=== PATIENT | female | born 1975 ===

== ENCOUNTER 2019-05-27 10:52 | Emergency (ER) | payer SELFPAY ==
[~2019-05-27] VITALS: Ht 160 cm; Wt 55.0 kg
[2019-05-27 10:59] VITALS: BP 111/54
== END 2019-05-27 13:07 | disposition home or self-care (01) ==
LOC: ED 12:00
DX: F15.10 Other stimulant abuse, uncomplicated (principal)
CPT/HCPCS: 99281

== ENCOUNTER 2019-08-22 15:31 | Inpatient (IN) | payer MEDICAID ==
[~2019-08-22] VITALS: Ht 160 cm; Wt 55.3 kg
[2019-08-22] MEDS ORDERED: SODIUM CHLORIDE FLUSH 10ML SYR IVF ONE ×2 (16:00→18:30)
[2019-08-22] MEDS ORDERED: ACETAMINOPHEN 500 MG TABLET PO ONE (16:00)
[2019-08-22] MEDS ORDERED: SODIUM CHLORIDE 0.9% 1,000ML IVBOLUS ONE ×2 (16:00→18:30)
[2019-08-22 16:26] LABS: MEAN CORPUSCULAR HEMOGLOBIN 29.3 pg (27.0-34.8); MEAN CORPUSCULAR HGB CONC 33.1 g/dL (32.4-35.8); MEAN CORPUSCULAR VOLUME 88.5 fL (80-100); MEAN PLATELET VOLUME 9.2 fL (7.4-10.4); PLATELET COUNT 186 x10^3/uL (130-400); RED BLOOD COUNT 5.25 x10^6/uL (3.82-5.3); RED CELL DISTRIBUTION WIDTH 13.6 % (9.6-15.2)
[2019-08-22 16:27] LABS: RAPID INFLUENZA A Negative (Negative); RAPID INFLUENZA B Negative (Negative)
[2019-08-22 16:32] LABS: ALBUMIN 3.7 g/dL (3.4-5.0); ANION GAP 8 mmol/L (5-15); CALCIUM 8.6 mg/dL (8.5-10.1); CHLORIDE 101 mmol/L (98-107); CREATININE 1.16 mg/dL (0.55-1.02)
[2019-08-22 17:00] LABS: MD YES
[2019-08-22 17:06] LABS: BAND#(MANUAL) 7.71 x10^3/uL; BANDS%(MANUAL) 47 % (0-7); LYMPH#(MANUAL) 1.48 x10^3/uL (1-3.4); LYMPHS% (MANUAL) 9 % (22-44); METAMYELOCYTES# (MANUAL) 0.49 x10^3/uL (0-0); METAMYELOCYTES% (MANUAL) 3 % (0-1); MONOS#(MANUAL) 0.98 x10^3/uL (0.3-2.7); MONOS% (MANUAL) 6 % (2-9); SEG#(MANUAL) 5.74 x10^3/uL (1.8-6.8); SEGS% (MANUAL) 35 % (42-75)
[2019-08-22 17:07] LABS: <PLATELET ESTIMATE> ADEQUATE; <PLT MORPHOLOGY> NORMAL PLT MORPH; <RBC MORPHOLOGY> NORMAL
--- NOTE | 2019-08-22 17:46 | NUR ---
nursing department chairperson: pt to ed room 28 from lobby at this time
--- NOTE | 2019-08-22 18:11 | NUR ---
C/O COUGHING AND SORE THROAT X3 DAYS. NO RESP DISTRESS. DENIES SMOKING, BUT SMOKES. CONNECTED TO MONITORING. CALL LIGHT IN REACH. IV START. IVF RUNNING PER DEC.
[2019-08-22] MEDS: AZITHROMYCIN 500 MG in SODIUM CHLORIDE 0.9% 250 ML IV ONE (18:30)
[2019-08-22] MEDS ORDERED: CEFTRIAXONE PMX 1GM/50ML 50 ML IVPB ONE (18:30)
--- NOTE | 2019-08-22 19:26 | NUR ---
BREAK RN FOR PRIMARY RN ANDREW, REPORT RECEIVED. PT AMBULATED TO RESTROOM WITH STEADY GAIT. TEMP ELEVATED, TO MEDICATE WITH TYLENOL PER ORDER. VITALS OTHERWISE STABLE. ST ON MONITOR. VERIFIED BLOOD CULTURES DRAWN X2. PT BACK TO BED FROM RESTROOM, RESTING IN POSITION OF COMFORT. REPORTS 8/10 GARCIA PAIN. TO DISCUSS WITH DR. BENNETT. CALL LIGHT IN REACH. FALL PRECUATIONS IN PLACE. SIDE RAILS UPX2. A&OX4.
[2019-08-22] MEDS ORDERED: KETOROLAC 30 MG/1 ML ONE (19:32)
[2019-08-22] MEDS ORDERED: CEFTRIAXONE PMX 1GM/50ML 50 ML ONE (19:32)
[2019-08-22] MEDS ORDERED: ACETAMINOPHEN 500 MG TABLET ONE (19:33)
--- NOTE | 2019-08-22 19:36 | NUR ---
DR. BENNETT AND PRIMARY RN ANDREW TO BEDSIDE, DISCUSSING GARCIA WITH PT, ORDER RECEIVED FOR 15MG IV TORADOL ONCE NOW.
--- NOTE | 2019-08-22 19:36 | NUR ---
RECEIVED VERBAL ORDER FOR TORADOL 15MG IV PUSH ONE TIME.
--- NOTE | 2019-08-22 19:39 | NUR ---
BEDSIDE REPORT AND CARE BACK TO PRIMARY FRANKY MORALES
--- NOTE | 2019-08-22 19:50 | NUR ---
LETA RN ASSISTING PRIMARY RN ANDREW, PT SPOUSE [place] CALLED ([phone]) AND UPDATED ON POC PER PT REQUEST AND PRIMARY RN. PT UPDATED THAT SPOUSE WAS REACHED AND INFORMATION REQUESTED WAS RELAYED. PT RESTING COMFORTABLY. ALL NEEDS MET AND ADDRESSED. IV ABX AND IVF INFUSING PER ORDER. VSS. CALL LIGHT IN REACH. FALL PRECAUTIONS IN PLACE. BEDSIDE REPORT AND CARE BACK TO PRIMARY FRANKY MORALES.
--- NOTE | 2019-08-22 19:57 | NUR ---
PT WITH NON CONTRACTED INSURANCE [facility]. CALLED VIKTOR AT [facility] TRANSFER [facility], STATED THEY WILL DENY TRANSFER OF PT. CALLED ASRAH BLACK OF [facility], WHO ALSO DENIED PT TRANSFER.
[2019-08-22] MEDS ORDERED: GUAIFENESIN/DM 200-20MG, 10ML UDC PO PRN (20:00)
[2019-08-22] MEDS ORDERED: KETOROLAC 30 MG/1 ML IVPush ONE (20:00)
[2019-08-22] MEDS ORDERED: POLYETHYLENE GLYCOL 17 GM PACKET PO PRN (20:00)
[2019-08-22] MEDS ORDERED: BISACODYL 10 MG SUPP PR PRN (20:00)
[2019-08-22] MEDS: CEFTRIAXONE PMX 1GM/50ML 50 ML IV SCH (20:00)
[2019-08-22] MEDS ORDERED: ONDANSETRON ODT 4 MG PO PRN (20:00)
--- NOTE | 2019-08-22 20:04 | NUR ---
REPORT GIVEN TO ACOSTA WILKINS.
[2019-08-22 20:27] VITALS: BP 98/65
[2019-08-22] MEDS: NS + 20MEQ KCL 1,000 ML IV SCH (21:32)
[2019-08-22] MEDS: AZITHROMYCIN 500 MG in SODIUM CHLORIDE 0.9% 250 ML IV SCH (21:32)
[2019-08-22] MEDS: HEPARIN 5,000 UNITS/ML, 1ML SQ SCH (21:33)
[2019-08-22] MEDS: ACETAMINOPHEN 325 MG TABLET PO PRN (22:36)
[2019-08-22] MEDS ORDERED: ALBUTEROL SULFATE 2.5 MG/3 ML NPPB PRN (23:00)
[2019-08-22] MEDS ORDERED: TRAZ-96 PO (23:11)
[2019-08-22] MEDS ORDERED: SERT100T PO (23:11)
[2019-08-23 01:33] VITALS: BP 98/58
[2019-08-23] MEDS: HEPARIN 5,000 UNITS/ML, 1ML SQ SCH ×3 (06:18→21:14)
[2019-08-23] MEDS: ACETAMINOPHEN 325 MG TABLET PO PRN ×2 (06:18→20:09)
[2019-08-23] MEDS: NS + 20MEQ KCL 1,000 ML IV SCH ×3 (06:18→23:45)
[2019-08-23 06:34] LABS: MEAN CORPUSCULAR HEMOGLOBIN 29.1 pg (27.0-34.8); MEAN CORPUSCULAR HGB CONC 32.6 g/dL (32.4-35.8); MEAN CORPUSCULAR VOLUME 89.2 fL (80-100); MEAN PLATELET VOLUME 9.5 fL (7.4-10.4); PLATELET COUNT 126 x10^3/uL (130-400); RED BLOOD COUNT 4.52 x10^6/uL (3.82-5.3); RED CELL DISTRIBUTION WIDTH 13.6 % (9.6-15.2)
[2019-08-23 06:42] LABS: ALBUMIN 2.5 g/dL (3.4-5.0); ANION GAP 7 mmol/L (5-15); CALCIUM 7.6 mg/dL (8.5-10.1); CHLORIDE 112 mmol/L (98-107)
[2019-08-23 06:48] LABS: ALANINE AMINOTRANSFERASE 13 U/L (12-78); ALKALINE PHOSPHATASE 62 U/L (45-117); BILIRUBIN,TOTAL 0.6 mg/dL (0.2-1.0); CREATININE 0.64 mg/dL (0.55-1.02); TOTAL PROTEIN 5.6 g/dL (6.4-8.2)
[2019-08-23 07:08] LABS: MD YES
[2019-08-23 07:15] VITALS: BP 97/61
[2019-08-23 07:19] LABS: <RBC MORPHOLOGY> NORMAL; BAND#(MANUAL) 6.12 x10^3/uL; BANDS%(MANUAL) 36 % (0-7); LYMPH#(MANUAL) 1.53 x10^3/uL (1-3.4); LYMPHS% (MANUAL) 9 % (22-44); MONOS#(MANUAL) 1.02 x10^3/uL (0.3-2.7); MONOS% (MANUAL) 6 % (2-9); SEG#(MANUAL) 8.33 x10^3/uL (1.8-6.8); SEGS% (MANUAL) 49 % (42-75)
[2019-08-23 07:20] LABS: <PLATELET ESTIMATE> DECREASED; <PLT MORPHOLOGY> NORMAL PLT MORPH
[2019-08-23] MEDS ORDERED: TRAZODONE 50MG TABLET PO PRN ×2 (09:00→10:30)
[2019-08-23] MEDS: SENNA/DOCUSATE TABLET PO SCH (09:00)
[2019-08-23] MEDS ORDERED: SERTRALINE 100MG TABLET PO SCH (09:00)
[2019-08-23] MEDS ORDERED: [UNRECOGNIZED DRUG - REMARK] MC SCH (09:30)
[2019-08-23] MEDS ORDERED: KETOROLAC 30 MG/1 ML IVPush ONE (12:30)
[2019-08-23 13:56] VITALS: BP 100/64
[2019-08-23 18:58] VITALS: BP 95/60
[2019-08-23] MEDS: CEFTRIAXONE PMX 1GM/50ML 50 ML IV SCH (20:09)
[2019-08-23] MEDS: AZITHROMYCIN 500 MG in SODIUM CHLORIDE 0.9% 250 ML IV SCH (21:10)
[2019-08-23] MEDS ORDERED: DIPHENHYDRAMINE 50 MG/ML, 1ML IVPush ONE (22:00)
[2019-08-23] MEDS ORDERED: METOCLOPRAMIDE 5 MG/ML, 2ML IVPush ONE (22:00)
[2019-08-23] MEDS: SERTRALINE 100MG TABLET PO SCH (22:14)
[2019-08-24 01:14] VITALS: BP 97/66
[2019-08-24 04:54] LABS: BASOPHILS % (AUTO) 0 % (0-1); EOSINOPHILS # (AUTO) 0.05 x10^3/uL (0-0.4); EOSINOPHILS % (AUTO) 0 % (1-7); LYMPHOCYTES # (AUTO) 1.06 x10^3/uL (1-3.4); LYMPHOCYTES % (AUTO) 8 % (22-44); MD NO; MEAN CORPUSCULAR HEMOGLOBIN 29.2 pg (27.0-34.8); MEAN CORPUSCULAR HGB CONC 32.5 g/dL (32.4-35.8); MONOCYTES # (AUTO) 0.65 x10^3/uL (0.2-0.8); MONOCYTES % (AUTO) 5 % (2-9); NEUTROPHILS % (AUTO) 87 % (42-75); PLATELET COUNT 127 x10^3/uL (130-400); RED BLOOD COUNT 4.06 x10^6/uL (3.82-5.3); RED CELL DISTRIBUTION WIDTH 13.4 % (9.6-15.2)
[2019-08-24] MEDS: ACETAMINOPHEN 325 MG TABLET PO PRN (04:54)
[2019-08-24] MEDS: HEPARIN 5,000 UNITS/ML, 1ML SQ SCH (04:55)
[2019-08-24 05:06] LABS: ANION GAP 7 mmol/L (5-15); CALCIUM 7.5 mg/dL (8.5-10.1); CHLORIDE 115 mmol/L (98-107)
[2019-08-24 05:08] LABS: CREATININE 0.55 mg/dL (0.55-1.02)
[2019-08-24 07:58] VITALS: BP 95/53
[2019-08-24] MEDS: NS + 20MEQ KCL 1,000 ML IV SCH (08:00)
[2019-08-24] MEDS: SERTRALINE 100MG TABLET PO SCH (08:29)
[2019-08-24] MEDS: SENNA/DOCUSATE TABLET PO SCH (08:30)
[2019-08-24] MEDS ORDERED: ACID1TAB3 PO (08:37)
[2019-08-24] MEDS ORDERED: CEFD300C37 PO (08:37)
[2019-08-24] MEDS ORDERED: AZIT500T10 PO (08:37)
== END 2019-08-24 09:39 | disposition home or self-care (01) | DRG 871 ==
LOC: ED 18:44 → EDIP 18:45 → ED 18:50 → 3N 20:20 → DCLOUNGE 08-24 09:32
PROVIDERS: ADMIT Internal Medicine; ATTEND Internal Medicine
DX: A41.9 Sepsis, unspecified organism (principal); J18.1 Lobar pneumonia, unspecified organism; J96.91 Respiratory failure, unspecified with hypoxia; E87.1 Hypo-osmolality and hyponatremia; F41.9 Anxiety disorder, unspecified; E87.6 Hypokalemia; F15.10 Other stimulant abuse, uncomplicated; G47.00 Insomnia, unspecified; Z90.711 Acquired absence of uterus with remaining cervical stump; Z87.891 Personal history of nicotine dependence; Z79.899 Other long term (current) drug therapy; Z88.8 Allergy status to other drugs, medicaments and biological substances
CPT/HCPCS: 36415; 71045; 80048; 80053; 82040; 83605; 84145; 85025; 87040; 87070; 87205; 87400; 93005; 99285; G0378; J0456; J0696; J1644; J1885; J3480; J1200; J2765; J7030; J7050

== ENCOUNTER 2019-08-24 18:07 | Inpatient (IN) | payer MEDICAID ==
[~2019-08-24] VITALS: Ht 160 cm; Wt 54.3 kg
[~2019-08-24 18:07] MED LIST: ACID1TAB3 PO; AZIT500T10 PO; CEFD300C37 PO; SERT100T PO; TRAZ-96 PO
--- NOTE | 2019-08-24 18:48 | NUR ---
44Y F THAT COMES IN W/ C/O CHEST TIGHTNESS AND FEELING LIKE SHE CANT BREATHE. PT STS D/C THIS AM AFTER 3 DAY STAY FOR [facility]NA, GOT ABX TOOK ONE AND FELL ASLEEP WOKE UP FEELING CHEST TIGHTNESS AND SOB, PT REPORTS BACK ITCHING. PT DENIES ALLERGIES AT THIS TIME. PT CONNECTED TO ALL MONITORING CALL LIGHT WITHIN REACH
[2019-08-24] MEDS ORDERED: DIPHENHYDRAMINE 50 MG/ML, 1ML ONE (19:23)
[2019-08-24 19:25] LABS: MEAN CORPUSCULAR HEMOGLOBIN 29.3 pg (27.0-34.8); MEAN CORPUSCULAR HGB CONC 32.9 g/dL (32.4-35.8); MEAN CORPUSCULAR VOLUME 89.3 fL (80-100); MEAN PLATELET VOLUME 8.9 fL (7.4-10.4); PLATELET COUNT 123 x10^3/uL (130-400); RED BLOOD COUNT 4.05 x10^6/uL (3.82-5.3); RED CELL DISTRIBUTION WIDTH 13.7 % (9.6-15.2)
--- NOTE | 2019-08-24 19:28 | NUR ---
PT REPORTS NEW ABX USE TODAY AND STATES SHE IS BECOMING INCREASINGLY ITCHY, HIVES NOTED. UPDATED ADDITIONAL ORDERS RECIEVED.
[2019-08-24] MEDS ORDERED: SODIUM CHLORIDE FLUSH 10ML SYR IVF ONE (19:30)
[2019-08-24 19:33] LABS: ALANINE AMINOTRANSFERASE 215 U/L (12-78); ALBUMIN 2.4 g/dL (3.4-5.0); ANION GAP 8 mmol/L (5-15); CALCIUM 7.8 mg/dL (8.5-10.1); CHLORIDE 112 mmol/L (98-107)
[2019-08-24 19:38] LABS: ALKALINE PHOSPHATASE 252 U/L (45-117); BILIRUBIN,TOTAL 0.3 mg/dL (0.2-1.0); CREATININE 0.52 mg/dL (0.55-1.02); TROPONIN I < 0.015 ng/mL (0.000-0.045)
[2019-08-24 19:40] LABS: BASOPHILS % (AUTO) 0 % (0-1); EOSINOPHILS # (AUTO) 0.05 x10^3/uL (0-0.4); EOSINOPHILS % (AUTO) 1 % (1-7); LYMPHOCYTES # (AUTO) 0.37 x10^3/uL (1-3.4); LYMPHOCYTES % (AUTO) 5 % (22-44); MD SCAN; MONOCYTES # (AUTO) 0.26 x10^3/uL (0.2-0.8); MONOCYTES % (AUTO) 4 % (2-9); NEUTROPHILS % (AUTO) 91 % (42-75)
[2019-08-24] MEDS ORDERED: DIPHENHYDRAMINE 50 MG/ML, 1ML IVPush ONE (20:00)
[2019-08-24] MEDS ORDERED: PIPERACILLIN/TAZO/PMX 3.375GM 50 ML IVPB ONE (20:30)
[2019-08-24] MEDS ORDERED: VANCOMYCIN 1,200 MG in SODIUM CHLORIDE 0.9% 250 ML IV ONE ×2 (20:30→22:00)
[2019-08-24] MEDS: VANCOMYCIN PER PHARMACY MC ONE (20:30)
--- NOTE | 2019-08-24 20:53 | NUR ---
report called to floor rn pt ready for transport at this time
--- NOTE | 2019-08-24 20:56 | NUR ---
LAB AT BEDSIDE FOR CULTOPLINARES
[2019-08-24] MEDS ORDERED: PROMETHAZINE 25 MG/ML, 1ML IM PRN (21:00)
[2019-08-24] MEDS ORDERED: POLYETHYLENE GLYCOL 17 GM PACKET PO PRN (21:00)
[2019-08-24] MEDS ORDERED: VANCOMYCIN PER PHARMACY MC PRN (21:00)
[2019-08-24] MEDS ORDERED: ACETAMINOPHEN 325 MG TABLET PO PRN (21:00)
[2019-08-24] MEDS ORDERED: TRAZODONE 50MG TABLET PO PRN (21:00)
[2019-08-24] MEDS ORDERED: OXYcodone IR 5MG TABLET PO PRN (21:00)
[2019-08-24] MEDS ORDERED: ONDANSETRON ODT 4 MG PO PRN (21:00)
[2019-08-24] MEDS ORDERED: BISACODYL 10 MG SUPP PR PRN (21:00)
[2019-08-24] MEDS ORDERED: hydrALAzine 20 MG/ML, 1ML IVPush PRN (21:00)
[2019-08-24] MEDS: HEPARIN 5,000 UNITS/ML, 1ML SQ SCH (21:00)
[2019-08-24] MEDS ORDERED: NICOTINE 7 MG/24 HR PATCH.TD24 TD SCH (21:00)
[2019-08-24] MEDS ORDERED: ONDANSETRON 2MG/ML, 2ML IVPush PRN (21:00)
[2019-08-24] MEDS ORDERED: DOCUSATE 100 MG CAPSULE PO PRN (21:00)
[2019-08-24] MEDS ORDERED: PIPERACILLIN/TAZO/PMX 3.375GM 50 ML ONE (21:02)
--- NOTE | 2019-08-24 21:07 | NUR ---
ABX STARTED, BLOOD CULTURES DRAWN PRIOR TO ABX.
[2019-08-24 21:17] LABS: FREE T4 (FREE THYROXINE) 1.23 ng/dL (0.76-1.46)
[2019-08-24 21:20] VITALS: BP 118/77
[2019-08-24 21:25] LABS: AMPHETAMINE SCREEN, URINE Positive (Negative); BARBITURATE SCREEN, URINE Negative (Negative); BENZODIAZEPINE SCREEN, URINE Negative (Negative); CANNABINOID SCREEN, URINE Negative (Negative); COCAINE SCREEN, URINE Negative (Negative); METHADONE SCREEN, URINE Negative (Negative); OPIATE SCREEN, URINE Negative (Negative)
[2019-08-24 21:39] LABS: HEMOGLOBIN A1C 5.2 % (4.2-6.3)
[2019-08-24] MEDS ORDERED: PHARMACOKINETIC CONSULTATION MC ONE (22:00)
[2019-08-24] MEDS ORDERED: VANCOMYCIN 1,200 MG in SODIUM CHLORIDE 0.9% 250 ML IV SCH (22:00)
[2019-08-24] MEDS ORDERED: PHARMACOKINETIC MONITORING MC PRN (22:00)
[2019-08-24] MEDS: LACTOBACILLUS CHEW TABLET PO SCH (22:38)
[2019-08-25] MEDS: LACTATED RINGERS 1,000 ML IV SCH ×2 (01:05→08:07)
[2019-08-25] MEDS: PIPERACILLIN/TAZO/PMX 3.375GM 50 ML IV SCH ×2 (02:13→08:07)
[2019-08-25 03:47] VITALS: BP 139/87
[2019-08-25] MEDS: HEPARIN 5,000 UNITS/ML, 1ML SQ SCH (05:00)
[2019-08-25] MEDS ORDERED: OMNIPAQUE 350 MG/ML, 100ML BOTTLE ONE (05:29)
[2019-08-25 05:44] LABS: MEAN CORPUSCULAR HEMOGLOBIN 28.9 pg (27.0-34.8); MEAN CORPUSCULAR HGB CONC 32.4 g/dL (32.4-35.8); MEAN CORPUSCULAR VOLUME 89.3 fL (80-100); MEAN PLATELET VOLUME 9.2 fL (7.4-10.4); PLATELET COUNT 152 x10^3/uL (130-400); RED BLOOD COUNT 3.94 x10^6/uL (3.82-5.3); RED CELL DISTRIBUTION WIDTH 13.6 % (9.6-15.2)
[2019-08-25 05:52] LABS: ALBUMIN 2.4 g/dL (3.4-5.0); ANION GAP 5 mmol/L (5-15); CHLORIDE 111 mmol/L (98-107)
[2019-08-25 06:02] LABS: ALANINE AMINOTRANSFERASE 830 U/L (12-78); ALKALINE PHOSPHATASE 366 U/L (45-117); BILIRUBIN,TOTAL 0.3 mg/dL (0.2-1.0); CHOL/HDL RATIO 5.5; CHOLESTEROL, TOTAL 122 mg/dL (140-239); CREATININE 0.49 mg/dL (0.55-1.02); HDL CHOL % 18 % (28-40); HDL CHOLESTEROL (DIRECT) 22 mg/dL (40-60); LDL CHOLESTEROL,CALCULATED 73 mg/dL (54-169); LDL/HDL RATIO 3.3 (0.5-3.0); TOTAL PROTEIN 6.2 g/dL (6.4-8.2); TRIGLYCERIDES 136 mg/dL (50-200); VLDL CHOLESTEROL 27 mg/dL (0-25)
[2019-08-25 06:05] LABS: BASOPHILS % (AUTO) 0 % (0-1); EOSINOPHILS # (AUTO) 0.01 x10^3/uL (0-0.4); EOSINOPHILS % (AUTO) 0 % (1-7); LYMPHOCYTES # (AUTO) 0.52 x10^3/uL (1-3.4); LYMPHOCYTES % (AUTO) 10 % (22-44); MD SCAN; MONOCYTES # (AUTO) 0.14 x10^3/uL (0.2-0.8); MONOCYTES % (AUTO) 3 % (2-9); NEUTROPHILS # (AUTO) 4.51 x10^3/uL (1.8-6.8); NEUTROPHILS % (AUTO) 87 % (42-75)
[2019-08-25] MEDS: SERTRALINE 100MG TABLET PO SCH (08:07)
[2019-08-25] MEDS: LACTOBACILLUS CHEW TABLET PO SCH ×3 (08:07→20:14)
[2019-08-25 08:26] VITALS: BP 114/69
[2019-08-25] MEDS: ENOXAPARIN 40 MG/0.4 ML SQ SCH (13:03)
[2019-08-25] MEDS: LEVOFLOXACIN 500 MG TABLET PO SCH (14:36)
[2019-08-25 15:53] VITALS: BP 120/78
[2019-08-25 19:18] VITALS: BP 148/79
[2019-08-26 03:48] VITALS: BP 130/77
[2019-08-26 05:09] LABS: BASOPHILS # (AUTO) 0.04 x10^3/uL (0-0.1); BASOPHILS % (AUTO) 0 % (0-1); EOSINOPHILS % (AUTO) 0 % (1-7); LYMPHOCYTES # (AUTO) 1.41 x10^3/uL (1-3.4); LYMPHOCYTES % (AUTO) 13 % (22-44); MD NO; MEAN CORPUSCULAR HEMOGLOBIN 28.9 pg (27.0-34.8); MEAN CORPUSCULAR HGB CONC 32.5 g/dL (32.4-35.8); MEAN CORPUSCULAR VOLUME 88.9 fL (80-100); MEAN PLATELET VOLUME 9.3 fL (7.4-10.4); MONOCYTES # (AUTO) 0.84 x10^3/uL (0.2-0.8); MONOCYTES % (AUTO) 8 % (2-9); NEUTROPHILS # (AUTO) 8.21 x10^3/uL (1.8-6.8); NEUTROPHILS % (AUTO) 78 % (42-75); PLATELET COUNT 242 x10^3/uL (130-400); RED BLOOD COUNT 4.03 x10^6/uL (3.82-5.3); RED CELL DISTRIBUTION WIDTH 13.5 % (9.6-15.2)
[2019-08-26 05:12] LABS: % IRON SATURATION 31 % (20-55); ALANINE AMINOTRANSFERASE 494 U/L (12-78); ALBUMIN 2.4 g/dL (3.4-5.0); ANION GAP 7 mmol/L (5-15); CALCIUM 8.6 mg/dL (8.5-10.1); CHLORIDE 111 mmol/L (98-107); CREATININE 0.69 mg/dL (0.55-1.02); IRON LEVEL 77 mcg/dL (50-170); TOTAL IRON BINDING CAPACITY 252 mcg/dL (250-450)
[2019-08-26 05:15] LABS: ALKALINE PHOSPHATASE 293 U/L (45-117); BILIRUBIN,TOTAL 0.2 mg/dL (0.2-1.0); CREATINE KINASE, TOTAL 29 U/L (26-192); TOTAL PROTEIN 6.2 g/dL (6.4-8.2)
[2019-08-26 06:44] VITALS: BP 111/72
[2019-08-26] MEDS: LACTOBACILLUS CHEW TABLET PO SCH ×3 (07:45→20:14)
[2019-08-26] MEDS: SERTRALINE 100MG TABLET PO SCH (07:45)
[2019-08-26] MEDS ORDERED: SODIUM BICARBONATE 8.4% 100 MEQ in DEXTROSE 5% 1,000 ML IV SCH (08:30)
[2019-08-26] MEDS ORDERED: POTASSIUM CHLORIDE 20 MEQ TAB.ER.PRT PO ONE (09:00)
[2019-08-26] MEDS: ACETYLCYSTEINE 600 MG CAPSULE PO SCH ×2 (09:36→20:14)
[2019-08-26] MEDS ORDERED: OMNIPAQUE 350 MG/ML, 100ML BOTTLE ONE (11:03)
[2019-08-26 12:36] VITALS: BP 143/75
[2019-08-26] MEDS: LEVOFLOXACIN 500 MG TABLET PO SCH (14:18)
[2019-08-26] MEDS: ENOXAPARIN 40 MG/0.4 ML SQ SCH (14:18)
[2019-08-26 19:15] VITALS: BP 148/76
[2019-08-27 03:51] VITALS: BP 115/62
[2019-08-27 05:31] LABS: MEAN CORPUSCULAR HEMOGLOBIN 28.8 pg (27.0-34.8); MEAN CORPUSCULAR HGB CONC 32.6 g/dL (32.4-35.8); MEAN CORPUSCULAR VOLUME 88.3 fL (80-100); MEAN PLATELET VOLUME 8.1 fL (7.4-10.4); PLATELET COUNT 311 x10^3/uL (130-400); RED BLOOD COUNT 4.32 x10^6/uL (3.82-5.3); RED CELL DISTRIBUTION WIDTH 13.6 % (9.6-15.2)
[2019-08-27 05:40] LABS: ALBUMIN 2.5 g/dL (3.4-5.0); ANION GAP 7 mmol/L (5-15); CALCIUM 8.4 mg/dL (8.5-10.1); CHLORIDE 108 mmol/L (98-107)
[2019-08-27 05:46] LABS: ALANINE AMINOTRANSFERASE 323 U/L (12-78); ALKALINE PHOSPHATASE 246 U/L (45-117); BILIRUBIN,TOTAL 0.2 mg/dL (0.2-1.0); TOTAL PROTEIN 6.1 g/dL (6.4-8.2)
[2019-08-27 05:57] LABS: BASOPHILS % (AUTO) 1 % (0-1); EOSINOPHILS # (AUTO) 0.08 x10^3/uL (0-0.4); EOSINOPHILS % (AUTO) 1 % (1-7); LYMPHOCYTES # (AUTO) 2.69 x10^3/uL (1-3.4); LYMPHOCYTES % (AUTO) 19 % (22-44); MD SCAN; MONOCYTES # (AUTO) 1.54 x10^3/uL (0.2-0.8); MONOCYTES % (AUTO) 11 % (2-9); NEUTROPHILS # (AUTO) 9.56 x10^3/uL (1.8-6.8); NEUTROPHILS % (AUTO) 69 % (42-75)
[2019-08-27 07:16] VITALS: BP 145/72
[2019-08-27] MEDS: SERTRALINE 100MG TABLET PO SCH (08:10)
[2019-08-27] MEDS: LACTOBACILLUS CHEW TABLET PO SCH ×3 (08:10→21:07)
[2019-08-27] MEDS: ACETYLCYSTEINE 600 MG CAPSULE PO SCH ×2 (08:10→21:07)
[2019-08-27 13:09] VITALS: BP 124/79
[2019-08-27] MEDS: LEVOFLOXACIN 500 MG TABLET PO SCH (14:10)
[2019-08-27] MEDS: ENOXAPARIN 40 MG/0.4 ML SQ SCH (14:10)
[2019-08-27 19:21] VITALS: BP 123/70
[2019-08-28 00:23] VITALS: BP 122/75
[2019-08-28 07:45] VITALS: BP 112/74
[2019-08-28] MEDS: LACTOBACILLUS CHEW TABLET PO SCH ×2 (09:00→16:07)
[2019-08-28] MEDS: SERTRALINE 100MG TABLET PO SCH (09:00)
[2019-08-28] MEDS ORDERED: SINCALIDE (KINEVAC) 5 MCG ONE (09:14)
[2019-08-28 11:26] LABS: BASOPHILS # (AUTO) 0.06 x10^3/uL (0-0.1); BASOPHILS % (AUTO) 1 % (0-1); EOSINOPHILS # (AUTO) 0.07 x10^3/uL (0-0.4); EOSINOPHILS % (AUTO) 1 % (1-7); LYMPHOCYTES % (AUTO) 25 % (22-44); MD NO; MEAN CORPUSCULAR HEMOGLOBIN 28.8 pg (27.0-34.8); MEAN CORPUSCULAR VOLUME 87.3 fL (80-100); MONOCYTES # (AUTO) 1.28 x10^3/uL (0.2-0.8); MONOCYTES % (AUTO) 10 % (2-9); NEUTROPHILS # (AUTO) 7.99 x10^3/uL (1.8-6.8); NEUTROPHILS % (AUTO) 63 % (42-75); PLATELET COUNT 405 x10^3/uL (130-400); RED BLOOD COUNT 4.83 x10^6/uL (3.82-5.3); RED CELL DISTRIBUTION WIDTH 13.2 % (9.6-15.2)
[2019-08-28 11:36] LABS: ALANINE AMINOTRANSFERASE 217 U/L (12-78); ALBUMIN 2.7 g/dL (3.4-5.0); ANION GAP 6 mmol/L (5-15); CALCIUM 8.6 mg/dL (8.5-10.1); CHLORIDE 107 mmol/L (98-107); CREATININE 0.78 mg/dL (0.55-1.02)
[2019-08-28 11:37] LABS: ALKALINE PHOSPHATASE 217 U/L (45-117); BILIRUBIN,TOTAL 0.2 mg/dL (0.2-1.0); TOTAL PROTEIN 6.6 g/dL (6.4-8.2)
[2019-08-28 14:10] VITALS: BP 108/63
[2019-08-28] MEDS: LEVOFLOXACIN 500 MG TABLET PO SCH (14:11)
[2019-08-28] MEDS: ENOXAPARIN 40 MG/0.4 ML SQ SCH (14:11)
[2019-08-28] MEDS ORDERED: LEVO500T47 PO (17:27)
== END 2019-08-28 18:33 | disposition home or self-care (01) | DRG 194 ==
LOC: ED 18:58 → EDIP 20:54 → 3N 21:25
PROVIDERS: ADMIT Internal Medicine; ATTEND Internal Medicine
DX: J15.9 Unspecified bacterial pneumonia (principal); E87.2 Acidosis; F15.10 Other stimulant abuse, uncomplicated; F41.9 Anxiety disorder, unspecified; Z87.891 Personal history of nicotine dependence; Z88.1 Allergy status to other antibiotic agents; Z90.711 Acquired absence of uterus with remaining cervical stump; L27.0 Generalized skin eruption due to drugs and medicaments taken internally; T36.1X5A Adverse effect of cephalosporins and other beta-lactam antibiotics, initial encounter
CPT/HCPCS: 36415; 71260; 74177; 76700; 78227; 80053; 80061; 80074; 80307; 82550; 83036; 83540; 83550; 83605; 83735; 84100; 84439; 84443; 84484; 85025; 86706; 87040; 87070; 87205; 93005; G0378; J1650; J2543; J3370; J7070; Q9967; A9537; C9898; J1200; J2805; J7050; J7120; J7512